=== PATIENT | male | born 1955 | race Caucasian/White ===

== ENCOUNTER 2017-10-15 07:44 | Day surgery (SDC) | payer OTHER | END 2017-10-15 13:45 | disposition home or self-care (01) | LOC: AMB-ENDOS 07:44 | DX: D12.4 Benign neoplasm of descending colon (principal); Z12.11 Encounter for screening for malignant neoplasm of colon ==

== ENCOUNTER 2020-04-12 08:16 | Outpatient (CLI) | payer OTHER | END 2020-04-12 08:27 | disposition home or self-care (01) | LOC: TOM 08:16 | PROVIDERS: ATTEND Surgery | DX: C61 Malignant neoplasm of prostate (principal); Z12.11 Encounter for screening for malignant neoplasm of colon; K52.0 Gastroenteritis and colitis due to radiation; K62.89 Other specified diseases of anus and rectum; K56.50 Intestinal adhesions [bands], unspecified as to partial versus complete obstruction ==